=== PATIENT | male | born 1950 | race Caucasian/White ===

== ENCOUNTER 2018-05-25 06:42 | Day surgery (SDC) | payer MEDICARE, MEDICAID ==
[~2018-05-25] VITALS: Ht 165.1 cm; Wt 70.5 kg
[~2018-05-25 06:42] MED LIST: AMLO-512 GT; ASCO500 GT; BACL10TA GT; CALC-877 GT; CARV3 GT; DOXA1 GT; DOXY100C GT; ENOX40DI9 SQ; FERR220E7 GT; FINA5TAB41 GT; LANS30 GT; LEVO125 GT; SODIUM CHLORIDE 0.9% 1,000 ML IV ONE; TRAZ-219 GT; VITAD1000 GT
[2018-05-25] MEDS ORDERED: LIDOCAINE 2% 30 ML JELLY TP ONE (06:43)
[2018-05-25] MEDS ORDERED: BENZOCAINE 20% 50 MCG/SPRAY 57 GM TP ONE (06:43)
[2018-05-25] MEDS ORDERED: ALBUTEROL SULFATE 2.5 MG/0.5 ML NEB SOLUTION NEB ONE (06:43)
[2018-05-25] MEDS ORDERED: LIDOCAINE 4% 50 ML SOLUTION TP ONE (06:43)
[2018-05-25] MEDS ORDERED: FentaNYL CITRATE-PF 100 MCG/2 ML VIAL ONE (06:50)
[2018-05-25] MEDS ORDERED: MIDAZOLAM HCL 2 MG/2 ML VIAL ONE (06:50)
[2018-05-25] MEDS ORDERED: SODIUM CHLORIDE 0.9% 1,000 ML IV ONE (07:10)
[2018-05-25 08:09] LABS: GLUCOMETER DEV NAME(LOC) SDS.; GLUCOSE,POINT OF CARE 92 MG/DL (70-110)
[2018-05-25] MEDS ORDERED: MethylPREDNISolone SOD SUCC 125 MG/2 ML VIAL IVP ONE (09:00)
[2018-05-25] MEDS ORDERED: MethylPREDNISolone SOD SUCC 125 MG/2 ML VIAL ONE (09:29)
[2018-05-25] MEDS ORDERED: OXYGEN THERAPY IH SCH (20:00)
== END 2018-05-25 11:00 | disposition other institution (70) ==
LOC: SURGERY 06:42
PROVIDERS: ATTEND Internal Medicine Critical Care Medicine
DX: J38.4 Edema of larynx (principal); J98.09 Other diseases of bronchus, not elsewhere classified; J98.8 Other specified respiratory disorders; I10 Essential (primary) hypertension; I70.8 Atherosclerosis of other arteries; J96.10 Chronic respiratory failure, unspecified whether with hypoxia or hypercapnia; N40.0 Benign prostatic hyperplasia without lower urinary tract symptoms; Z79.891 Long term (current) use of opiate analgesic; Z93.1 Gastrostomy status; Z85.21 Personal history of malignant neoplasm of larynx; Z79.2 Long term (current) use of antibiotics; Z93.0 Tracheostomy status; Z87.01 Personal history of pneumonia (recurrent); Z98.890 Other specified postprocedural states; Z79.899 Other long term (current) drug therapy
CPT/HCPCS: 31623; 31624; 71045; 82962; 87015; 87070; 87205; 87206; 87220; 88108; 88312; 99152; J2250; J2930; J3010; J7030